=== PATIENT | male | born 1965 | race Caucasian/White ===

== ENCOUNTER 2018-02-28 04:44 | Emergency (ER) | payer OTHER ==
[2018-02-28 05:12] VITALS: BMI 30.4
[2018-02-28] MEDS ORDERED: SODIUM CHLORIDE 1,000 ML IV STA (05:17)
[2018-02-28] MEDS ORDERED: morphine CARPU-JECT 2 MG/1 ML DISP.SYRIN IVPUSH ONE (05:18)
--- NOTE | 2018-02-28 05:26 | PDOC ---
History of Present Illness - General Chief Complaint: Pain Stated Complaint: PAIN Time Seen by Provider: 02/28/18 05:16 - History of Present Illness Initial Comments: 02/28/18 05:20 Mr. Kingsley is a 52 yo male w/ no significant pmh who presents for evaluation of right upper quadrant pain radiating to his right shoulder since 11pm last night. He reports he has had similar pain in the past about a year ago for which he was evaluated without cause found. He reports he subsequently had an EGD that revealed small inflammation between his stomach and intestines. He cannot relate his pain to any activity or food and rates it as a 10/10 in intensity. The patient denies chest pain, shortness of breath, headache and dizziness. Denies fever, chills, nausea, vomit, diarrhea and constipation. Denies dysuria, frequency, urgency and hematuria. Allergies: NKDA Past History - Past Medical History Allergies/Adverse Reactions: Allergies Allergy/AdvReac Type Severity Reaction Status Date / Time No Known Allergies Allergy Verified 02/28/18 04:54 Home Medications: Ambulatory Orders Aspirin [ASA -] 325 mg PO DAILY 07/31/16 Anemia: No Asthma: Yes Cancer: No Cardiac Disorders: No CVA: No COPD: No CHF: No Dementia: No Diabetes: No GI Disorders: No Disorders: No HTN: No Hypercholesterolemia: No Liver Disease: No Seizures: No Thyroid Disease: No - Surgical History Abdominal Surgery: No Appendectomy: No Cardiac Surgery: No Cholecystectomy: No Lung Surgery: No Neurologic Surgery: No Orthopedic Surgery: No - Immunization History Immunization Up to Date: Yes - Suicide/Smoking/Psychosocial Hx Smoking Status: No Smoking History: Never smoked Have you smoked in the past 12 months: No Number of Cigarettes Smoked Daily: 0 If you are a former smoker, when did you quit?: 25 yrs Information on smoking cessation initiated: No Hx Alcohol Use: No Drug/Substance Use Hx: No Substance Use Type: None Hx Substance Use Treatment: No Review of Systems - Review of Systems Comments:: 02/28/18 05:26 GENERAL/CONSTITUTIONAL: No fever or chills. No weakness. HEAD, EYES, EARS, NOSE AND THROAT: No change in vision. No ear pain or discharge. No sore throat. CARDIOVASCULAR: No chest pain or shortness of breath RESPIRATORY: No cough, wheezing, or hemoptysis. GASTROINTESTINAL: +RUQ pain as described. No nausea, vomiting, diarrhea or constipation. GENITOURINARY: No dysuria, frequency, or change in urination. MUSCULOSKELETAL: No joint or muscle swelling or pain. No neck or back pain. SKIN: No rash NEUROLOGIC: No headache, vertigo, loss of consciousness, or change in strength/ sensation. ENDOCRINE: No increased thirst. No abnormal weight change HEMATOLOGIC/LYMPHATIC: No anemia, easy bleeding, or history of blood clots. ALLERGIC/IMMUNOLOGIC: No hives or skin allergy. *Physical Exam - Vital Signs Last Vital Signs Temp Pulse Resp BP Pulse Ox 98 F 62 20 142/77 100 02/28/18 04:48 02/28/18 04:48 02/28/18 04:48 02/28/18 04:48 02/28/18 04:48 - Physical Exam Comments: 02/28/18 05:26 GENERAL: Awake, alert, and fully oriented, in no acute distress HEAD: No signs of trauma, normocephalic, atraumatic EYES: PERRLA, EOMI, sclera anicteric, conjunctiva clear ENT: Auricles normal inspection, hearing grossly normal, nares patent, oropharynx clear without exudates. Moist mucosa NECK: Normal ROM, supple, no lymphadenopathy, JVD, or masses LUNGS: No distress, speaks full sentences, clear to auscultation bilaterally HEART: Regular rate and rhythm, normal S1 and S2, no murmurs, rubs or gallops, peripheral pulses normal and equal bilaterally. ABDOMEN: +RUQ TTTP. Soft, normoactive bowel sounds. No guarding, no rebound. No masses EXTREMITIES: Normal inspection, Normal range of motion, no edema. No clubbing or cyanosis. NEUROLOGICAL: Cranial nerves II through XII grossly intact. Normal speech, normal gait, no focal sensorimotor deficits SKIN: Warm, Dry, normal turgor, no rashes or lesions noted. ED Treatment Course - LABORATORY CBC & Chemistry Diagram: 02/28/18 05:26 02/28/18 05:26 Medical Decision Making - Medical Decision Making 02/28/18 05:41 Mr. Kingsley is a 52 yo male w/ no pmh who presents w/ symptoms concerning for acute cholecystitis. CT ordered as well as labs for evaluation. 02/28/18 06:50 Patient signed out to oncoming team for further evaluation. *DC/Admit/Observation/Transfer Diagnosis at time of Disposition: Abdominal pain Qualifiers: Abdominal location: right upper quadrant Qualified Code(s): R10.11 - Right upper quadrant pain - Discharge Dispostion Condition at time of disposition: Fair - Referrals Referrals: Jing Tipton MD [Primary Care Provider] - - Patient Instructions - Post Discharge Activity
[2018-02-28] MEDS ORDERED: MORPHINE SULFATE 2 MG/ML VIAL ONE (05:37)
[2018-02-28 05:40] LABS: BASO % 0.3 % (0-2.0); EOS % 0.6 % (0-4.5); HEMATOCRIT 46.3 % (35.4-49); HEMOGLOBIN 15.5 GM/dL (11.7-16.9); LYMPH % 8.2 % (8-40); MCH 28.2 pg (25.7-33.7); MCHC 33.4 g/dl (32.0-35.9); MEAN CELL VOLUME 84.4 fl (80-96); MEAN PLT VOLUME 7.5 fl (7.5-11.1); MONO % 7.1 % (3.8-10.2); NEUT % 83.8 % (42.8-82.8); PLATELET COUNT 302 K/MM3 (134-434); RBC 5.48 M/mm3 (4.00-5.60); RDW 13.9 % (11.9-15.9); WHITE BLOOD COUNT 14.7 K/mm3 (4.0-10.0)
[2018-02-28 06:02] LABS: ALBUMIN 4.1 g/dl (3.4-5.0); ANION GAP 7 (8-16); BILIRUBIN,TOTAL 0.5 mg/dL (0.2-1.0); BLOOD UREA NITROGEN 27 mg/dL (7-18); CALCIUM 8.7 mg/dL (8.5-10.1); CHLORIDE 106 mmol/L (98-107); CO2 27 mmol/L (21-32); CREATININE 1.1 mg/dL (0.7-1.3); GLUCOSE,RANDOM 100 mg/dL (74-106); INR 1.06 (0.82-1.09); LIPASE 110 U/L (73-393); POTASSIUM 4.5 mmol/L (3.5-5.1); SGOT/AST 17 U/L (15-37); SGPT/ALT 24 U/L (12-78); SODIUM 140 mmol/L (136-145); TOT PROT 7.6 g/dl (6.4-8.2)
[2018-02-28 06:04] LABS: ACTIVATED PTT 42.6 SECONDS (25.2-36.5)
[2018-02-28 06:05] LABS: ALK PHOS 74 U/L (45-117)
--- NOTE | 2018-02-28 06:05 | PDOC ---
Attending Attestation - HPI HPI: 02/28/18 06:07 The patient is a 52 year old male with no significant PMH who presents to the emergency department with right upper quadrant pain that began at approximately 11PM last night. The patient describes the right upper quadrant pain as 10/10 in intensity and sharp. Patient states he had a EGD in the past for a similar pain that revealed small inflammation between the stomach and intestines. The patient denies chest pain, shortness of breath, headache and dizziness. Denies fever, chills, nausea, vomit, diarrhea and constipation. Denies dysuria, frequency, urgency and hematuria. Allergies: NKA Past surgical history: None reported Social history: No reported alcohol, drug, or cigarette use. PCP: Dr. Tipton - Physicial Exam PE: 02/28/18 06:19 GENERAL: Awake, alert, and fully oriented, in no acute distress HEAD: No signs of trauma EYES: PERRLA, EOMI, sclera anicteric, conjunctiva clear ENT: Auricles normal inspection, hearing grossly normal, nares patent, oropharynx clear without exudates. Moist mucosa NECK: Normal ROM, supple, no lymphadenopathy, JVD, or masses LUNGS: Breath sounds equal, clear to auscultation bilaterally. No wheezes, and no crackles HEART: Regular rate and rhythm, normal S1 and S2, no murmurs, rubs or gallops ABDOMEN: (+) Right upper quadrant tenderness. Soft, normoactive bowel sounds. No guarding, no rebound. No masses EXTREMITIES: Normal range of motion, no edema. No clubbing or cyanosis. No cords, erythema, or tenderness NEUROLOGICAL: Cranial nerves II through XII grossly intact. Normal speech, normal gait SKIN: Warm, Dry, normal turgor, no rashes or lesions noted. <Anastacia Radford - Last Filed: 02/28/18 06:19> - Resident Resident Name: Deon Kauffman - ED Attending Attestation I have performed the following: I have examined & evaluated the patient, The case was reviewed & discussed with the resident, I agree w/resident's findings & plan, Exceptions are as noted - Medical Decision Making 02/28/18 19:42 Pt treated and released <Damon Barnett - Last Filed: 02/28/18 19:43>
[2018-02-28] MEDS ORDERED: morphine CARPU-JECT 4 MG/1 ML DISP.SYRIN IVPUSH ONE (06:24)
[2018-02-28] MEDS ORDERED: morphine SULFATE 4 MG/ML VIAL ONE (06:29)
--- NOTE | 2018-02-28 07:02 | PDOC ---
*Physical Exam - Vital Signs Last Vital Signs Temp Pulse Resp BP Pulse Ox 98 F 62 20 142/77 100 02/28/18 04:48 02/28/18 04:48 02/28/18 04:48 02/28/18 04:48 02/28/18 04:48 ED Treatment Course - LABORATORY CBC & Chemistry Diagram: 02/28/18 05:26 02/28/18 05:26 - ADDITIONAL ORDERS Additional order review: Laboratory Results 02/28/18 02/28/18 02/28/18 05:26 05:26 05:26 PT with INR 12.00 INR 1.06 PTT (Actin FS) 42.6 H Sodium 140 Potassium 4.5 Chloride 106 Carbon Dioxide 27 Anion Gap 7 L BUN 27 H Creatinine 1.1 Creat Clearance w eGFR > 60 Random Glucose 100 Calcium 8.7 Total Bilirubin 0.5 AST 17 ALT 24 D Alkaline Phosphatase 74 Creatine Kinase 150 Creatine Kinase Index 0.6 CK-MB (CK-2) 0.92 Troponin I < 0.02 Total Protein 7.6 Albumin 4.1 Lipase 110 Blood Type O NEGATIVE Antibody Screen Negative 02/28/18 05:26 RBC 5.48 MCV 84.4 MCHC 33.4 RDW 13.9 MPV 7.5 Neutrophils % 83.8 H Lymphocytes % 8.2 D Monocytes % 7.1 Eosinophils % 0.6 D Basophils % 0.3 - Medications Given in the ED: ED Medications Discontinued Medications Generic Name Dose Route Start Last Admin Trade Name Freq PRN Reason Stop Dose Admin Sodium Chloride 1,000 mls @ 1,000 mls/hr 02/28/18 05:17 02/28/18 05:43 Normal Saline - IV 02/28/18 06:16 1,000 mls/hr ASDIR STA Administration Morphine Sulfate 2 mg 02/28/18 05:18 02/28/18 05:46 Morphine Injection - IVPUSH 02/28/18 05:19 2 mg ONCE ONE Administration Morphine Sulfate 4 mg 02/28/18 06:24 02/28/18 06:31 Morphine Injection - IVPUSH 02/28/18 06:25 4 mg ONCE ONE Administration Medical Decision Making - Medical Decision Making 02/28/18 07:[address] scan 02/28/18 08:15 -CT read from imaging personal injury specialist negative for any acute abdominal pathology, negative for cholecystitis -patient still experiencing abdominal pain -will order RUQ ultrasound 02/28/18 11:11 US shows fatty liver vs hepatocellular disease *DC/Admit/Observation/Transfer Diagnosis at time of Disposition: Abdominal pain Qualifiers: Abdominal location: right upper quadrant Qualified Code(s): R10.11 - Right upper quadrant pain - Discharge Dispostion Disposition: HOME Condition at time of disposition: Stable Decision to Admit order: No - Referrals Referrals: Jing Tipton MD [Primary Care Provider] - 1 week Rober Chen MD [Staff Physician] - - Patient Instructions Additional Instructions: You were seen in the hospital for abdominal pain. Your CAT scan was negative for any acute disease You Ultrasound shows you may have some mild fatty liver disease, please make sure to follow with your primary care and nailhead setter. Please follow with your primary care physician within 1 week of discharge Please make an appointment with the Cellars Supervisor, Dr. Chen, within 1 week of discharge If you experience fevers, chills, further severe abdominal pain, nausea, vomiting, diarrhea - Post Discharge Activity
[2018-02-28 07:41] LABS: URINE APPEARANCE CLEAR; URINE BILIRUBIN NEGATIVE (<2.0 mg/dL); URINE COLOR LTYELLOW; URINE GLUCOSE (UA) NEGATIVE (NEGATIVE); URINE KETONE NEGATIVE (NEGATIVE); URINE LEUK ESTERASE NEGATIVE (NEGATIVE); URINE NITRITE NEGATIVE (NEGATIVE); URINE PROTEIN NEGATIVE (NEGATIVE); URINE UROBILINOGEN NEGATIVE mg/dL (0.2-1.0)
[2018-02-28 07:58] LABS: URINE MUCUS RARE
[2018-02-28 10:45] VITALS: TEMP 98.2
[2018-02-28 11:52] VITALS: BP 137/77; PULSE 59
--- NOTE | 2018-02-28 13:24 | EKG ---
Test Reason : Blood Pressure : / mmHG Vent. Rate : 064 BPM Atrial Rate : 064 BPM P-R Int : 158 ms QRS Dur : 092 ms QT Int : 410 ms P-R-T Axes : 056 052 016 degrees QTc Int : 422 ms NORMAL SINUS RHYTHM MINIMAL VOLTAGE CRITERIA FOR LVH, MAY BE NORMAL VARIANT BORDERLINE ECG WHEN COMPARED WITH ECG OF 03-AUG-2016 04:07, NO SIGNIFICANT CHANGE WAS FOUND Confirmed by Dominik Duran ([id number]) on 02/28/2018 1:24:11 PM Referred By: Confirmed By:Dominik Duran
== END 2018-02-28 11:49 | disposition home or self-care (01) ==
LOC: JER 04:44
PROC: 3E0337Z Introduction of Electrolytic and Water Balance Substance into Peripheral Vein, Percutaneous Approach (ICD-10-PCS; principal; 2018-02-28)
PROC: 3E033NZ Introduction of Analgesics, Hypnotics, Sedatives into Peripheral Vein, Percutaneous Approach (ICD-10-PCS; 2018-02-28)
DX: R10.11 Right upper quadrant pain (principal)
CPT/HCPCS: 36415; 74177-TC; 76705-TC; 80053; 81003; 81015; 82550; 82553; 83690; 84484; 85025; 85610; 85730; 86850; 86900; 86901; 87086; 93005; 93010; 99283-25; J7030

== ENCOUNTER 2018-03-03 17:09 | Observation (INO) | payer OTHER ==
[2018-03-03 17:22] VITALS: BMI 30.4
--- NOTE | 2018-03-03 17:37 | PDOC ---
History of Present Illness - General Chief Complaint: Palpitations Stated Complaint: chest pain Time Seen by Provider: 03/03/18 17:37 - History of Present Illness Initial Comments: 52 yo male with no significant PMH feeling palpitations beginning 2-3 weeks prior and is acutely worse today along with abdominal pain. He has been here multiple times in the last few weeks for abdominal pain that has been worked up only significant for fatty liver. Admits to decreased appetite, nausea, diarrhea , and SOB. Denies vomiting, fevers, headaches, or others symptoms. He received a Carotid Doppler within the last few weeks as well that was normal. PCP is [facility]. 03/03/18 17:43 Past History - Past Medical History Allergies/Adverse Reactions: Allergies Allergy/AdvReac Type Severity Reaction Status Date / Time No Known Allergies Allergy Verified 02/28/18 04:54 Home Medications: Ambulatory Orders Amlodipine Besylate [Norvasc -] 5 mg PO DAILY #30 tablet 03/06/18 Anemia: No Asthma: Yes Cancer: No Cardiac Disorders: No CVA: No COPD: No CHF: No Dementia: No Diabetes: No GI Disorders: No Disorders: No HTN: No Hypercholesterolemia: No Liver Disease: No Seizures: No Thyroid Disease: No - Surgical History Abdominal Surgery: No Appendectomy: No Cardiac Surgery: No Cholecystectomy: No Lung Surgery: No Neurologic Surgery: No Orthopedic Surgery: No - Immunization History Immunization Up to Date: Yes - Suicide/Smoking/Psychosocial Hx Smoking Status: No Smoking History: Former smoker Have you smoked in the past 12 months: No Number of Cigarettes Smoked Daily: 0 If you are a former smoker, when did you quit?: 25 yrs Information on smoking cessation initiated: No Hx Alcohol Use: No Drug/Substance Use Hx: No Substance Use Type: None Hx Substance Use Treatment: No Review of Systems - Review of Systems Constitutional: No: Chills, Diaphoresis, Fever, Loss of Appetite HEENTM: No: Eye Pain, Blurred Vision Respiratory: No: Cough, Orthopnea, Shortness of Breath Cardiac (ROS): Yes: Chest Pain, Palpitations. No: Edema, Irregular Heart Rate ABD/GI: No: Diarrhea, Nausea, Vomiting : No: Dysuria, Discharge, Frequency Musculoskeletal: No: Back Pain, Gout, Joint Pain Integumentary: No: Bruising, Lesions, Lumps Neurological: No: Headache, Numbness, Paresthesia Psychiatric: Yes: Anxiety. No: Depression Endocrine: No: Excessive Sweating, Flushing Hematologic/Lymphatic: No: Anemia, Blood Clots *Physical Exam - Vital Signs Last Vital Signs Temp Pulse Resp BP Pulse Ox 99.5 F 83 20 144/82 99 03/03/18 17:19 03/03/18 17:19 03/03/18 17:19 03/03/18 17:19 03/03/18 17:19 - Physical Exam General Appearance: Yes: Nourished, Appropriately Dressed. No: Apparent Distress HEENT: positive: EOMI, ANTONY, Other (Slight scleeral injection bilaterally). negative: Normal ENT Inspection Neck: positive: Trachea midline, Normal Thyroid, Supple. negative: Tender, Rigid Respiratory/Chest: positive: Lungs Clear, Normal Breath Sounds. negative: Chest Tender, Respiratory Distress, Accessory Muscle Use Cardiovascular: positive: Regular Rhythm, Regular Rate. negative: Tachycardia Gastrointestinal/Abdominal: positive: Normal Bowel Sounds, Flat, Soft. negative : Tender ED Treatment Course - LABORATORY CBC & Chemistry Diagram: 03/06/18 05:45 03/06/18 05:45 Medical Decision Making - Medical Decision Making 52 year old male with palliations. Unclear etiology but substance abuse and elevated thyroid function could be the cause vs. intrinsic cardiac pathology ( tachyarrythmia). EKG demonstrating NSR 58 BPM, IA 152, QTc 428, QRS 96, and normal axis with borderline LVH criteria. Jacyn signed out to Dr. Caba in stable condition pending labs. 03/03/18 17:43 *DC/Admit/Observation/Transfer Diagnosis at time of Disposition: Palpitations, Near syncope Chest pain Qualifiers: Chest pain type: precordial pain Qualified Code(s): R07.2 - Precordial pain - Discharge Dispostion Disposition: HOME Condition at time of disposition: Improved - Prescriptions - Referrals - Patient Instructions - Post Discharge Activity
--- NOTE | 2018-03-03 17:55 | PDOC ---
Attending Attestation - HPI HPI: 03/03/18 19:03 The patient is a 52 year old male with past medical history of asthma presents to the emergency department with chest palpitations. Patient presents with a progressively worsening chest pain accompanied with radiating generalized body pain for the past couple of weeks. The patient states earlier today he experienced an onset of elevated blood pressure thats been more frequent than previous episodes. Patient states he checked his heart rate on an tommy on his phone, which showed 135 bpm. Denies fever, chills, cough or a headache. Denies shortness of breath or orthopnea. Denies abdominal pain or back pain. Denies dysuria, hematuria, frequency or urgency to urinate. Allergies: NKDA Social history: Former smoker. Denies alcohol or recreational drug use. Surgical history: None reported. PCP: Dr. Tipton. - Physicial Exam PE: 03/03/18 19:03 GENERAL: The patient is in no acute distress. HEAD: Normal with no signs of trauma. EYES: PERRLA, EOMI, sclera anicteric, conjunctiva clear. ENT: Ears normal, nares patent, oropharynx clear without exudates. Moist mucous membranes. NECK: Normal range of motion, supple without lymphadenopathy, JVD, or masses. LUNGS: Breath sounds equal, clear to auscultation bilaterally. No wheezes, and no crackles. HEART:Regular rate and rhythm, normal S1 and S2 without murmur, rub or gallop. ABDOMEN: Soft, nontender, normoactive bowel sounds. No guarding, no rebound. No masses palpable. EXTREMITIES: Normal range of motion, no edema. No clubbing or cyanosis. No erythema, or tenderness. NEUROLOGICAL: Cranial nerves II through XII grossly intact. Normal speech. No focal neurological deficits. MUSCULOSKELETAL: Back non-tender to palpation, no CVA tenderness SKIN: Warm, Dry, normal turgor, no rashes or lesions noted. - Medical Decision Making 03/03/18 19:04 Documentation prepared by Dawn Vo, acting as auditor medical claims for Shoshana Zaman MD. <Dawn Vo - Last Filed: 03/03/18 19:03> - Resident Resident Name: Miguelina Mario - ED Attending Attestation I have performed the following: I have examined & evaluated the patient, The case was reviewed & discussed with the resident, I agree w/resident's findings & plan, Exceptions are as noted - Medical Decision Making Pt presents with an episode of tachycardia which he has had in the past Pending labs Pending re assessment Signed out to overnight team <Shoshana Zaman - Last Filed: 03/06/18 08:37>
[2018-03-03] MEDS ORDERED: FAMOTIDINE 20 MG/50 ML IVPB 20 MG/50 ML MG IVPB ONE ×2 (18:22→19:57)
[2018-03-03] MEDS ORDERED: MAG HYDROX/AL HYDROX/SIMETH 30 ML UNIT-DOSE CUP PO ONE (18:22)
--- NOTE | 2018-03-03 19:18 | PDOC ---
*Physical Exam - Vital Signs Last Vital Signs Temp Pulse Resp BP Pulse Ox 99.5 F 83 20 144/82 99 03/03/18 17:19 03/03/18 17:19 03/03/18 17:19 03/03/18 17:19 03/03/18 17:19 03/03/18 19:16 Patient's care endorsed to me by Drs. Mario and Austyn at the end of their shifts. Per Dr. Mario's note, patient is a 52 yo male with no significant PMH feeling palpitations beginning 2-3 weeks prior and is acutely worse today along with abdominal pain. He has been here multiple times in the last few weeks for abdominal pain that has been worked up only significant for fatty liver. Admits to decreased appetite, nausea, diarrhea, and SOB. Denies vomiting, fevers, headaches, or others symptoms. He received a Carotid Doppler within the last few weeks as well that was normal. PCP is [facility]. Awaiting second troponin, HEART score is 3 based on first troponin, needs outpatient cardiology followup. Heart Score/ECG Review - History History: Moderately suspicious - Electrocardiogram EKG: Normal - Age Age: 45-65 - Risk Factors Risk Factors Heart Score: Yes Hx Obesity Based on the list above the patient has:: 1-2 risk factors - Troponin Troponin: </= normal limit - Score Heart Score - Total: 3 #1 NSR, rate 77, normal axis and intervals, no ischemic changes ED Treatment Course - LABORATORY CBC & Chemistry Diagram: 03/03/18 19:49 03/03/18 19:49 Medical Decision Making - Medical Decision Making 03/03/18 20:59 Patient has WBC elevation with left shift. Rectal temperature ordered. EKG reviewed and NADP, no e/o effusion or pericarditis. First troponin negative. Laboratory Tests 03/03/18 03/03/18 03/03/18 19:49 19:49 19:49 WBC 12.6 H RBC 5.30 Hgb 14.8 Hct 44.4 MCV 83.7 MCH 27.9 MCHC 33.3 RDW 13.6 Plt Count 317 MPV 7.7 Absolute Neuts (auto) 10.5 Neutrophils % 83.4 H Lymphocytes % 10.4 D Monocytes % 5.7 Eosinophils % 0.2 Basophils % 0.3 Nucleated RBC % 0 PT with INR 13.90 H INR 1.23 H Sodium 142 Potassium 4.2 Chloride 108 H Carbon Dioxide 25 Anion Gap 9 BUN 23 H Creatinine 1.0 Creat Clearance w eGFR > 60 Random Glucose 90 Calcium 8.9 Total Bilirubin 0.4 AST 13 L D ALT 22 Alkaline Phosphatase 66 Total Protein 7.4 Albumin 3.9 Lipase TSH 3.23 03/03/18 19:49 WBC RBC Hgb Hct MCV MCH MCHC RDW Plt Count MPV Absolute Neuts (auto) Neutrophils % Lymphocytes % Monocytes % Eosinophils % Basophils % Nucleated RBC % PT with INR INR Sodium Potassium Chloride Carbon Dioxide Anion Gap BUN Creatinine Creat Clearance w eGFR Random Glucose Calcium Total Bilirubin AST ALT Alkaline Phosphatase Total Protein Albumin Lipase 85 TSH Second troponin order placed for 23:50. 03/03/18 22:23 Patient is going for chest CTA. 03/03/18 23:45 Repeat cardiac enzymes ordered. 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 Should be managed in hospital with cardiology consult. The Pt is unsafe for discharge at this time. They require further hospital observation, workup, and treatment. Microblog sent to [facility] for admission. Spoke with [facility], in agreement Pt to be admitted to to: Telemetry Decision to Admit order placed to covering attending Consult order placed to cardiology on-call provider. *DC/Admit/Observation/Transfer Diagnosis at time of Disposition: Palpitations, Near syncope Chest pain Qualifiers: Chest pain type: unspecified Qualified Code(s): R07.9 - Chest pain, unspecified - Discharge Dispostion Condition at time of disposition: Stable Decision to Admit order: Yes - Referrals Referrals: Jing Tipton MD [Primary Care Provider] - - Patient Instructions - Post Discharge Activity
[2018-03-03] MEDS ORDERED: MAG HYDROX/AL HYDROX/SIMETH 30 ML UNIT-DOSE CUP ONE (19:57)
[2018-03-03 20:02] LABS: BASO % 0.3 % (0-2.0); EOS % 0.2 % (0-4.5); WHITE BLOOD COUNT 12.6 K/mm3 (4.0-10.0)
[2018-03-03 20:05] LABS: HEMATOCRIT 44.4 % (35.4-49); HEMOGLOBIN 14.8 GM/dL (11.7-16.9); LYMPH % 10.4 % (8-40); MCH 27.9 pg (25.7-33.7); MCHC 33.3 g/dl (32.0-35.9); MEAN CELL VOLUME 83.7 fl (80-96); MEAN PLT VOLUME 7.7 fl (7.5-11.1); MONO % 5.7 % (3.8-10.2); NEUT % 83.4 % (42.8-82.8); PLATELET COUNT 317 K/MM3 (134-434); RDW 13.6 % (11.9-15.9)
[2018-03-03 20:15] LABS: INR 1.23 (0.82-1.09); PROTHROMBIN TIME (PATIENT) 13.9 SEC (9.7-13.0)
[2018-03-03 20:24] LABS: ALBUMIN 3.9 g/dl (3.4-5.0); ANION GAP 9 (8-16); BILIRUBIN,TOTAL 0.4 mg/dL (0.2-1.0); BLOOD UREA NITROGEN 23 mg/dL (7-18); CALCIUM 8.9 mg/dL (8.5-10.1); CHLORIDE 108 mmol/L (98-107); CO2 25 mmol/L (21-32); GLUCOSE,RANDOM 90 mg/dL (74-106); POTASSIUM 4.2 mmol/L (3.5-5.1); SGOT/AST 13 U/L (15-37); SGPT/ALT 22 U/L (12-78); SODIUM 142 mmol/L (136-145); TOT PROT 7.4 g/dl (6.4-8.2)
[2018-03-03 20:32] LABS: ALK PHOS 66 U/L (45-117)
--- NOTE | 2018-03-03 22:00 | PDOC ---
*Physical Exam - Vital Signs Last Vital Signs Temp Pulse Resp BP Pulse Ox 99.5 F 83 20 144/82 99 03/03/18 17:19 03/03/18 17:19 03/03/18 17:19 03/03/18 17:19 03/03/18 17:19 ED Treatment Course - LABORATORY CBC & Chemistry Diagram: 03/03/18 19:49 03/03/18 19:49 - ADDITIONAL ORDERS Additional order review: Laboratory Results 03/03/18 03/03/18 03/03/18 19:49 19:49 19:49 PT with INR 13.90 H INR 1.23 H Sodium 142 Potassium 4.2 Chloride 108 H Carbon Dioxide 25 Anion Gap 9 BUN 23 H Creatinine 1.0 Creat Clearance w eGFR > 60 Random Glucose 90 Calcium 8.9 Total Bilirubin 0.4 AST 13 L D ALT 22 Alkaline Phosphatase 66 Total Protein 7.4 Albumin 3.9 Lipase 85 TSH 3.23 03/03/18 19:49 RBC 5.30 MCV 83.7 MCHC 33.3 RDW 13.6 MPV 7.7 Neutrophils % 83.4 H Lymphocytes % 10.4 D Monocytes % 5.7 Eosinophils % 0.2 Basophils % 0.3 - RADIOLOGY Radiology Studies Ordered: Category Date Time Status CHEST CT WITH CONTRAST [CT] Stat CT Scan 03/03/18 21:57 Ordered - Medications Given in the ED: ED Medications Discontinued Medications Generic Name Dose Route Start Last Admin Trade Name Dilipq PRN Reason Stop Dose Admin Al Hydroxide/Mg Hydroxide 30 ml 03/03/18 18:22 03/03/18 20:03 Mylanta Oral Suspension - PO 03/03/18 18:23 30 ml ONCE ONE Administration Famotidine/Sodium Chloride 20 mg in 50 mls @ 100 mls/hr 03/03/18 18:22 20:03 Pepcid 20 Mg Premixed Ivpb - IVPB 03/03/18 18:51 100 mls/hr ONCE ONE Administration Medical Decision Making - Medical Decision Making 03/03/18 21:58 received pt on signout. 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 Pt needs admission to tele obs. Pt has a hx of snorting drugs in his younger days and may have vegetations on his heart. He was tachy to 130 and had temp of 99.5 oral in the ER on arrival; pt needs echocardiogram. He will be admitted to tele obs. 03/03/18 23:15 *DC/Admit/Observation/Transfer Diagnosis at time of Disposition: Chest pain, Palpitations - Discharge Dispostion Condition at time of disposition: Stable - Referrals Referrals: Jing Tipton MD [Primary Care Provider] - - Patient Instructions Printed Discharge Instructions: DI for Chest Pain, DI for Epigastric Pain Additional Instructions: You were seen in the ER for chest pain. We did lab work on your blood and urine , an electrocardiogram, and a chest x-ray, and we did not find any concerning abnormalities. Your symptoms improved with the medications we gave you in the ER. After our assessment, we do not believe you are having a medical emergency at this time, and we believe you are safe to go home. Take over the counter pain medications for your pain, as instructed on the medication label. Please follow up with your regular PCP doctor in 1-3 days. Call their clinic as soon as possible, tell them you were seen in the ER, and tell them you need an appointment. If you have any new or worsening symptoms, especially worsening chest pain, jaw pain, shoulder/arm pain, shortness of breath, sweats, nausea, loss of consciousness, palpitations, or other symptoms, please come back to the ER at any time (24 hours a day). If you are having severe or life threatening symptoms, or symptoms that make it unsafe to drive or have someone drive you, please call 911. - Post Discharge Activity
--- NOTE | 2018-03-04 01:01 | HP ---
Admitting History and Physical - Primary Care Physician PCP: Dr. Jing Tipton - Admission Chief Complaint: Palpitations History of Present Illness: 52 yo M no significant medical history presented to the ED with palpitation and chest pressure x 2 days. Patient endorses fast heart rate started yesterday night and continued into today. 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 The symptom occurs at rest and during physical activities. It's associated with sob, dizziness, R hand numbness and tingling. The chest pressure is generalized and diffuse over the center of chest. Patient had multiple ED visits and ACS workups have been negative. He was instructed to undergo stress test at [facility] but never followed up. Denies fever, chills, weakness, urinary or bowel sx, recent travel, trauma. History Source: Patient Limitations to Obtaining History: No Limitations - Smoking History Smoking history: Former smoker Have you smoked in the past 12 months: No Aproximately how many cigarettes per day: 0 If you are a former smoker, when did you quit?: 25 yrs - Alcohol/Substance Use Hx Alcohol Use: No Home Medications - Allergies Allergies/Adverse Reactions: Allergies Allergy/AdvReac Type Severity Reaction Status Date / Time No Known Allergies Allergy Verified 02/28/18 04:54 - Home Medications Home Medications: Ambulatory Orders NK [No Known Home Medication] 03/04/18 Review of Systems - Review of Systems Constitutional: reports: No Symptoms Eyes: reports: No Symptoms HENT: reports: No Symptoms Neck: reports: No Symptoms Cardiovascular: reports: Palpitations, Shortness of Breath. denies: Chest Pain Respiratory: reports: SOB. denies: Cough, Exercise Intolerance, Hemoptysis, Orthopnea Gastrointestinal: reports: No Symptoms Genitourinary: reports: No Symptoms Neurological: reports: No Symptoms Physical Examination Vital Signs: Vital Signs Temperature 99.0 F 03/03/18 22:15 Pulse Rate 76 03/03/18 22:08 Respiratory Rate 18 03/03/18 22:08 Blood Pressure 155/76 03/03/18 22:08 O2 Sat by Pulse Oximetry (%) 98 03/03/18 22:08 Constitutional: Yes: Well Nourished, No Distress, Calm Eyes: Yes: Conjunctiva Clear, EOM Intact, PERRL HENT: Yes: Atraumatic, Normocephalic Neck: Yes: Supple, Trachea Midline Cardiovascular: Yes: Regular Rate and Rhythm, S1, S2. No: Bruit, JVD, Murmur, Rub Respiratory: Yes: Regular, CTA Bilaterally Gastrointestinal: Yes: Normal Bowel Sounds, Soft, Abdomen, Obese. No: Splenomegaly, Tenderness Musculoskeletal: Yes: WNL Extremities: Yes: WNL Edema: No Peripheral Pulses WNL: Yes Neurological: Yes: Alert, Oriented, Cran Nerves II-XII Intact ...Motor Strength: WNL Labs: CBC, BMP 03/03/18 19:49 03/03/18 19:49 Imaging - Results Cat Scan: Report Reviewed, Image Reviewed EKG: Report Reviewed, Image Reviewed Assessment/Plan 52 yo M admitted to obs for palpitation and chest pressure r/o ACS. Palpitations with chest pressure r/o arrhythmia and ACS - Likely from anxiety and GI issue * + findings of ulcers on prior endoscopy - Negative trop x 2, will send 3rd trop - Normal EKG x 1, repeat EKG in AM - Negative stress test in 2012. Never f/u with Dr. Bermudez or Phillip for further stress test - Cardiac monitoring - Protonix 40mg PO, nitroglycerin PRN - Cardiology consult Leukocytosis - Persistent since 2013 - Unknown cause but no sign of infection - Observe off abx and outpatient f/u with hematology HTN - BP poorly controlled on admission - Start low dose norvasc 5mg daily - outpatient f/u for BP checks DVT ppx: lovenox 40mg Dispo: observation. awaiting for cardiology clearance. Chris Joseph [id number] [phone] Visit type - Emergency Visit Emergency Visit: Yes ED Registration Date: 03/03/18 Care time: The patient presented to the Emergency Department on the above date and was hospitalized for further evaluation of their emergent condition. - New Patient This patient is new to me today: Yes Date on this admission: 03/04/18 - Critical Care Critical Care patient: No Hospitalist Screening - Colonoscopy Questionnaire Colonoscopy Questionnaire: Colonoscopy Questionnaire - Patient: 50 - 75 years old and never had a screening colonoscopy: Unknown History of colon or rectal polyps, or CA: Unknown History of IBD, Crohn's disease or UC: Unknown History of abdominal radiation therapy as a child: Unknown - Relative: 1 with colon or rectal CA, or polyps at age 60 or younger: Unknown Colon or rectal CA diagnosed at age 45 or younger: Unknown Multiple relatives with colon or rectal CA: Unknown - Outcome: Screening Result: Negative Screen
[2018-03-04] MEDS ORDERED: NITROGLYCERIN SUBLINGUAL 1/150 0.4 MG TAB SL PRN (01:19)
[2018-03-04] MEDS ORDERED: PANTOPRAZOLE 40 MG TABLET (FP) PO ONE (01:19)
[2018-03-04] MEDS ORDERED: amLODIPine BESYLATE 5 MG TABLET (FP) PO ONE (01:30)
--- NOTE | 2018-03-04 06:09 | PN ---
Teaching Attending Note Name of Resident: Chris Ruiz ATTENDING PHYSICIAN STATEMENT I saw and evaluated the patient. I reviewed the resident's note and discussed the case with the resident. I agree with the resident's findings and plan as documented. SUBJECTIVE: OBJECTIVE: ASSESSMENT AND PLAN: this is a 52 y/o male admitted to observation after the patient had an episode of lightheadness and near syncope. according to the patient before the episode happened the patient started feeling that his heart is racing and that he checked his heart rate on his phone and was in the upper 130s and that is when he deiced to come to the ER for further evaluation. 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 he moves around during his shifts. denied any chest pain but stated that he is having chest tightness when he felt his hear was racing. he denied any stimulants when he is driving patient denied any drug use, no coffee, tea, energy drinks, caffeinated beverages. he stated he doesnt drink more that 1 cup of coffee a day and for the past week he hasnt drank any. this is his second episode for him plan admit to obs-tele cardiology evaluation
[2018-03-04 06:13] LABS: BASO % 0.5 % (0-2.0); EOS % 1.2 % (0-4.5); HEMATOCRIT 44.7 % (35.4-49); HEMOGLOBIN 15.1 GM/dL (11.7-16.9); LYMPH % 14.6 % (8-40); MCH 28.6 pg (25.7-33.7); MCHC 33.9 g/dl (32.0-35.9); MEAN CELL VOLUME 84.4 fl (80-96); MEAN PLT VOLUME 7.6 fl (7.5-11.1); MONO % 8.4 % (3.8-10.2); NEUT % 75.3 % (42.8-82.8); PLATELET COUNT 296 K/MM3 (134-434); RBC 5.29 M/mm3 (4.00-5.60); RDW 13.7 % (11.9-15.9)
[2018-03-04 06:36] LABS: ANION GAP 5 (8-16); BLOOD UREA NITROGEN 22 mg/dL (7-18); CALCIUM 9.2 mg/dL (8.5-10.1); CHLORIDE 106 mmol/L (98-107); CO2 30 mmol/L (21-32); CREATININE 1.2 mg/dL (0.7-1.3); GLUCOSE,RANDOM 80 mg/dL (74-106); MAGNESIUM 2.5 mg/dL (1.8-2.4); POTASSIUM 4.7 mmol/L (3.5-5.1); SODIUM 141 mmol/L (136-145)
[2018-03-04] MEDS ORDERED: PT OWN MED DRAWER 7, Y5N ONE (09:41)
[2018-03-04] MEDS: ENOXAPARIN NA (PORCINE) 40 MG/0.4 ML DISP.SYRIN SQ SCH (09:48)
[2018-03-04] MEDS: amLODIPine BESYLATE 5 MG TABLET (FP) PO SCH (09:48)
--- NOTE | 2018-03-04 12:03 | CON.CARD ---
Consult Consult Specialty:: Cardiology Referred by:: Hospitalist Medicine Reason for Consultation:: Chest pain, palpitations, dyspnea - History of Present Illness Chief Complaint: Chest pain, palpitations, dyspnea History of Present Illness: 52 y/o male presented with episode of lightheadness and near syncope without true syncope. Prior to episode, patient experienced non-exertional palpitations with chest tightness, dyspnea and that he checked his heart rate on his phone and was in the upper 130s and that is when he deiced to come to the ER for further evaluation. No events on telemetry thus far. - History Source History Provided By: Patient Limitations to Obtaining History: No Limitations - Alcohol/Substance Use Hx Alcohol Use: No - Smoking History Smoking history: Former smoker Have you smoked in the past 12 months: No Aproximately how many cigarettes per day: 0 If you are a former smoker, when did you quit?: 25 yrs Home Medications - Allergies Allergies/Adverse Reactions: Allergies Allergy/AdvReac Type Severity Reaction Status Date / Time No Known Allergies Allergy Verified 02/28/18 04:54 - Home Medications Home Medications: Ambulatory Orders NK [No Known Home Medication] 03/04/18 Review of Systems - Review of Systems Cardiovascular: reports: Palpitations, Shortness of Breath Neurological: reports: Dizziness Vital Signs: Vital Signs Temperature 99.0 F 03/03/18 22:15 Pulse Rate 55 L 03/04/18 04:32 Respiratory Rate 18 03/04/18 04:32 Blood Pressure 126/65 03/04/18 04:32 O2 Sat by Pulse Oximetry (%) 97 03/04/18 10:26 Constitutional: Yes: No Distress, Calm Neck: Yes: Supple Respiratory: Yes: Regular, CTA Bilaterally Gastrointestinal: Yes: Normal Bowel Sounds, Soft Cardiovascular: Yes: Regular Rate and Rhythm JVD: No Carotid Bruit: No Heart Sounds: Yes: S1, S2 Edema: No - Other Data Labs, Other Data: CBC, BMP 03/04/18 05:49 03/04/18 05:49 INR, PTT INR 1.23 (0.82-1.09) H 03/03/18 19:49 Troponin, BNP 03/03/18 03/03/18 03/04/18 19:49 23:51 05:49 Troponin I < 0.02 < 0.02 < 0.02 Troponin, BNP 03/03/18 03/03/1803/04/18 19:49 23:51 05:49 Troponin I < 0.02 < 0.02 < 0.02 Imaging - Results EKG: Report Reviewed (SB @ 58 min criteria LVH) Problem List - Problems (1) Hypertension Code(s): I10 - ESSENTIAL (PRIMARY) HYPERTENSION Qualifiers: Hypertension type: essential hypertension Qualified Code(s): I10 - Essential (primary) hypertension (2) Chest pain Code(s): R07.9 - CHEST PAIN, UNSPECIFIED Qualifiers: Chest pain type: precordial pain Qualified Code(s): R07.2 - Precordial pain (3) Near syncope Code(s): R55 - SYNCOPE AND COLLAPSE (4) Palpitations Code(s): R00.2 - PALPITATIONS Assessment/Plan 1. Palpitations, chest tightness, dyspnea, near syncope r/o sustained tachyarrhythmia vs mitral valve prolapse syndrome 2. HTN P:1. Ruled out for OH, normal TSH noted, f/u chest CT and CXR reports 2. 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 Echocardiogram to assess ventricular and valve fxn 4. Started Norvasc 5 qd, watch for associated reflex tachycardia 5. Thank you for consultative opportunity
[2018-03-04] MEDS ORDERED: SODIUM CHLORIDE 1,000 ML IV STA (15:00)
--- NOTE | 2018-03-04 15:00 | HOSP ---
Subjective - Review of Symptoms Subjective: currently asymptomatic. has had 3 episodes of palpitations but yesterday was the most severe as it was assoc iwth near syncope. states he checked his HR on his phone and it was 130's. last episode was 2 weeks ago. denies CP, SOB, fever , chills, N/V/C/D, blurred vision had stress test several years ago and reports as negative Mother had cardiac disease in her 40's (not CAD but unclear what) Uncle has sudden cardiac in his 40's Current Medications Generic Name Dose Route Start Last Admin Trade Name Freq PRN Reason Stop Dose Admin Amlodipine Besylate 5 mg 03/04/18 10:00 03/04/18 09:48 Norvasc - PO 5 mg DAILY [facility] Administration Enoxaparin Sodium 40 mg 03/04/18 10:00 03/04/18 09:48 Lovenox - SQ 40 mg DAILY [facility] Administration Nitroglycerin 0.4 mg 03/04/18 01:19 Nitrostat - SL Q5M PRN PAIN Last Vital Signs Temp Pulse Resp BP Pulse Ox 99.0 F 55 L 18 126/65 97 03/03/18 22:15 03/04/18 04:32 03/04/18 04:32 03/04/18 04:32 03/04/18 10:26 General mildly anxious CV S1 S2 RRR no murmur/rub/gallop no chest wall tenderness Lungs CTA B/l no wheezing/rales/rhonchi CBCD WBC 10.0 K/mm3 (4.0-10.0) 03/04/18 05:49 RBC 5.29 M/mm3 (4.00-5.60) 03/04/18 05:49 Hgb 15.1 GM/dL (11.7-16.9) 03/04/18 05:49 Hct 44.7 % (35.4-49) 03/04/18 05:49 MCV 84.4 fl (80-96) 03/04/18 05:49 MCHC 33.9 g/dl (32.0-35.9) 03/04/18 05:49 RDW 13.7 % (11.9-15.9) 03/04/18 05:49 Plt Count 296 K/MM3 (134-434) 03/04/18 05:49 MPV 7.6 fl (7.5-11.1) 03/04/18 05:49 CMP Sodium 141 mmol/L (136-145) 03/04/18 05:49 Potassium 4.7 mmol/L (3.5-5.1) 03/04/18 05:49 Chloride 106 mmol/L (98-107) 03/04/18 05:49 Carbon Dioxide 30 mmol/L (21-32) 03/04/18 05:49 Anion Gap 5 (8-16) L 03/04/18 05:49 BUN 22 mg/dL (7-18) H 03/04/18 05:49 Creatinine 1.2 mg/dL (0.7-1.3) 03/04/18 05:49 Creat Clearance w eGFR > 60 (>60) 03/04/18 05:49 Calcium 9.2 mg/dL (8.5-10.1) 03/04/18 05:49 Total Bilirubin 0.4 mg/dL (0.2-1.0) 03/03/18 19:49 AST 13 U/L (15-37) L D 03/03/18 19:49 ALT 22 U/L (12-78) 03/03/18 19:49 Alkaline Phosphatase 66 U/L (45-117) 03/03/18 19:49 Total Protein 7.4 g/dl (6.4-8.2) 03/03/18 19:49 Albumin 3.9 g/dl (3.4-5.0) 03/03/18 19:49 A/P 52yo M with no PMH presented to the ER with palpitations 1. Palpitations- likely tachyarrythmia with reported HR 130's. no events noted on cardiac montior. will cont to monitor for now. TSH WNL. cardiac enzymes neg x3. will obtain echo to r/o structual disease. will need to consider loop recorder as outpatient if nothing seen on monitor. cardio consulted 2. leukocytosis- liekly reactive. now resolved. no sign of infection. no indication for abx 3. Elevated BUN- liekly slight dehydration. no signs of active bleeding/no steroid use. will give 1L NS bolus 4. Elevated BP on admission- started on norvasc. monitor 5. DVT ppx- lovenox 6. spoke with present at bedside. all questions answered. verbalized understanding and agreement with plan Physical Examination Vital Signs: Vital Signs Temperature 99.0 F 03/03/18 22:15 Pulse Rate 55 L 03/04/18 04:32 Respiratory Rate 18 03/04/18 04:32 Blood Pressure 126/65 03/04/18 04:32 O2 Sat by Pulse Oximetry (%) 97 03/04/18 10:26 Labs: CBC, BMP 03/04/18 05:49 03/04/18 05:49
[2018-03-05 07:52] LABS: CHLORIDE 104 mmol/L (98-107); POTASSIUM 4.5 mmol/L (3.5-5.1); SODIUM 139 mmol/L (136-145)
[2018-03-05 07:58] LABS: ANION GAP 7 (8-16); BLOOD UREA NITROGEN 19 mg/dL (7-18); CALCIUM 8.9 mg/dL (8.5-10.1); CO2 28 mmol/L (21-32); CREATININE 0.9 mg/dL (0.7-1.3); GLUCOSE,RANDOM 81 mg/dL (74-106)
--- NOTE | 2018-03-05 09:34 | EKG ---
Test Reason : Blood Pressure : / mmHG Vent. Rate : 058 BPM Atrial Rate : 058 BPM P-R Int : 152 ms QRS Dur : 096 ms QT Int : 436 ms P-R-T Axes : 053 046 027 degrees QTc Int : 428 ms SINUS BRADYCARDIA MINIMAL VOLTAGE CRITERIA FOR LVH, MAY BE NORMAL VARIANT WHEN COMPARED WITH ECG OF 03-MAR-2018 17:33, NO SIGNIFICANT CHANGE WAS FOUND Confirmed by KATIE GREENBERG, DANIEL ([id number]) on 03/05/2018 9:34:32 AM Referred By: Dane FERMIN Confirmed By:DANIEL WILSON MD
--- NOTE | 2018-03-05 09:38 | EKG ---
Test Reason : Blood Pressure : / mmHG Vent. Rate : 077 BPM Atrial Rate : 077 BPM P-R Int : 162 ms QRS Dur : 094 ms QT Int : 384 ms P-R-T Axes : 057 058 037 degrees QTc Int : 434 ms NORMAL SINUS RHYTHM NORMAL ECG WHEN COMPARED WITH ECG OF 28-FEB-2018 05:52, NO SIGNIFICANT CHANGE WAS FOUND Confirmed by DANIEL WILSON MD ([id number]) on 03/05/2018 9:38:29 AM Referred By: Confirmed By:DANIEL WILSON MD
[2018-03-05] MEDS: ENOXAPARIN NA (PORCINE) 40 MG/0.4 ML DISP.SYRIN SQ SCH (09:47)
[2018-03-05] MEDS: amLODIPine BESYLATE 5 MG TABLET (FP) PO SCH (09:47)
--- NOTE | 2018-03-05 12:42 | PN ---
Teaching Attending Note Name of Resident: Andrew Kraus ATTENDING PHYSICIAN STATEMENT I saw and evaluated the patient. I reviewed the resident's note and discussed the case with the resident. I agree with the resident's findings and plan as documented. SUBJECTIVE:no episodes of palpitations overnight. denies Cp, SOB, fever, chills , N/V/C/D OBJECTIVE: Last Vital Signs Temp Pulse Resp BP Pulse Ox 97.8 F 66 20 126/61 97 03/05/18 10:00 03/05/18 10:00 03/05/18 10:00 03/05/18 10:00 03/05/18 10:00 General NAD CV S1 S2 RRR no murmur/rub/gallop ASSESSMENT AND PLAN: 52yo M with no PMH presented to the ER with palpitations 1. Palpitations- likely tachyarrythmia with reported HR 130's. noted to be bradycardic on the monitor. with light activity in the room, HR increased to 85. awaiting echo. if negative will need to consider loop recorder as outpatient. cardio consulted 2. leukocytosis- liekly reactive. now resolved. no sign of infection. no indication for abx 3. Elevated BUN- liekly slight dehydration. no signs of active bleeding/no steroid use. resolved 4. HTN- on norvasc. monitor 5. DVT ppx- lovenox 6. d/c planning tomorrow after echo
--- NOTE | 2018-03-05 12:58 | PN ---
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 - Current Medication List Current Medications: Active Medications Amlodipine Besylate (Norvasc -) 5 mg PO DAILY [facility] Last Admin: 03/05/18 09:47 Dose: 5 mg Enoxaparin Sodium (Lovenox -) 40 mg SQ DAILY [facility] Last Admin: 03/05/18 09:47 Dose: 40 mg Nitroglycerin (Nitrostat -) 0.4 mg SL Q5M PRN PRN Reason: PAIN - Objective Vital Signs: Vital Signs Temperature 97.8 F 03/05/18 10:00 Pulse Rate 66 03/05/18 10:00 Respiratory Rate 20 03/05/18 10:00 Blood Pressure 126/61 03/05/18 10:00 O2 Sat by Pulse Oximetry (%) 97 03/05/18 10:00 Constitutional: Yes: No Distress, Calm Neck: Yes: Supple Cardiovascular: Yes: Regular Rate and Rhythm Respiratory: Yes: Regular, CTA Bilaterally Gastrointestinal: Yes: Normal Bowel Sounds, Soft Edema: No Labs: CBC, BMP 03/04/18 05:49 03/05/18 06:00 INR, PTT INR 1.23 (0.82-1.09) H 03/03/18 19:49 - ....Imaging Chest X-ray: Report Reviewed (NAD) Cat Scan: Report Reviewed (No PE, NAD) EKG: Report Reviewed (SB @ 58) Problem List - Problems (1) Hypertension Code(s): I10 - ESSENTIAL (PRIMARY) HYPERTENSION Qualifiers: Hypertension type: essential hypertension Qualified Code(s): I10 - Essential (primary) hypertension (2) Chest pain Code(s): R07.9 - CHEST PAIN, UNSPECIFIED Qualifiers: Chest pain type: precordial pain Qualified Code(s): R07.2 - Precordial pain (3) Near syncope Code(s): R55 - SYNCOPE AND COLLAPSE (4) Palpitations Code(s): R00.2 - PALPITATIONS Assessment/Plan 1. Palpitations, chest tightness, dyspnea, near syncope r/o sustained tachyarrhythmia vs mitral valve prolapse syndrome 2. HTN P:1. 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 Echocardiogram to assess ventricular and valve fxn 4. Currently on Norvasc 5 qd, watch for associated reflex tachycardia
--- NOTE | 2018-03-05 20:52 | PN ---
Physical Exam: SUBJECTIVE: Patient seen and examined. Pt. was in no acute distress. Pt. complained of sharp right upper quadrant pain that radiated to the right shoulder. Pt. rates the pain as 6/10 when it occurs. OBJECTIVE: Vital Signs Period Temp Pulse Resp BP Sys/Luu Pulse Ox Last 24 Hr 96.7 F-98.6 F 50-71 18-20 108-131/58-65 97 GENERAL: The patient is awake, alert, and fully oriented, in no acute distress. HEAD: Normal with no signs of trauma. EYES: extraocular movements intact, sclera anicteric, conjunctiva clear NECK: Trachea midline, full range of motion LUNGS: Breath sounds equal, clear to auscultation bilaterally, no wheezes, no crackles, no accessory muscle use. HEART: Regular rate and rhythm, S1, S2 without murmur, rub or gallop. ABDOMEN: Soft, nontender, nondistended, normoactive bowel sounds. EXTREMITIES: warm, no edema. NEUROLOGICAL: Cranial nerves II through XII grossly intact. Normal speech, gait not observed. PSYCH: Normal mood, normal affect. SKIN: Warm, dry, normal turgor, no rashes or lesions noted Intake & Output 03/04/18 03/05/18 03/05/18 23:59 11:59 23:59 Intake Total 1240 120 Balance 1240 120 Intake: IV 1000 Normal Saline - 1,000 ml 1000 @ 1000 mls/hr IV ASDIR STA Rx#:[id number] Oral 240 120 Other: Voiding Method Toilet Toilet Toilet # Unmeasured Voids Void 1 2 Bowel Movement No CBC, BMP 03/04/18 05:49 03/05/18 06:00 CBCD WBC 10.0 K/mm3 (4.0-10.0) 03/04/18 05:49 RBC 5.29 M/mm3 (4.00-5.60) 03/04/18 05:49 Hgb 15.1 GM/dL (11.7-16.9) 03/04/18 05:49 Hct 44.7 % (35.4-49) 03/04/18 05:49 MCV 84.4 fl (80-96) 03/04/18 05:49 MCHC 33.9 g/dl (32.0-35.9) 03/04/18 05:49 RDW 13.7 % (11.9-15.9) 03/04/18 05:49 Plt Count 296 K/MM3 (134-434) 03/04/18 05:49 MPV 7.6 fl (7.5-11.1) 03/04/18 05:49 CMP Sodium 139 mmol/L (136-145) 03/05/18 06:00 Potassium 4.5 mmol/L (3.5-5.1) 03/05/18 06:00 Chloride 104 mmol/L (98-107) 03/05/18 06:00 Carbon Dioxide 28 mmol/L (21-32) 03/05/18 06:00 Anion Gap 7 (8-16) L 03/05/18 06:00 BUN 19 mg/dL (7-18) H 03/05/18 06:00 Creatinine 0.9 mg/dL (0.7-1.3) 03/05/18 06:00 Creat Clearance w eGFR > 60 (>60) 03/05/18 06:00 Calcium 8.9 mg/dL (8.5-10.1) 03/05/18 06:00 Total Bilirubin 0.4 mg/dL (0.2-1.0) 03/03/18 19:49 AST 13 U/L (15-37) L D 03/03/18 19:49 ALT 22 U/L (12-78) 03/03/18 19:49 Alkaline Phosphatase 66 U/L (45-117) 03/03/18 19:49 Total Protein 7.4 g/dl (6.4-8.2) 03/03/18 19:49 Albumin 3.9 g/dl (3.4-5.0) 03/03/18 19:49 Laboratory Results - last 24 hr 03/05/18 06:00 Sodium 139 Potassium 4.5 Chloride 104 Carbon Dioxide 28 Anion Gap 7 L BUN 19 H Creatinine 0.9 Creat Clearance w eGFR > 60 Random Glucose 81 Calcium 8.9 CXR (03/03/18): No chest Pathology CT (03/04/18): No PE or acute pathology Tele: Hesham arrythmias to 50s Active Medications Current Medications Amlodipine Besylate (Norvasc -) 5 mg PO DAILY [facility] Last Admin: 03/05/18 09:47 Dose: 5 mg Enoxaparin Sodium (Lovenox -) 40 mg SQ DAILY [facility] Last Admin: 03/05/18 09:47 Dose: 40 mg Nitroglycerin (Nitrostat -) 0.4 mg SL Q5M PRN PRN Reason: PAIN ASSESSMENT/PLAN: 52yo M with no PMH presented to the ER with palpitations and chest pressure. #Palpitations - Pt. reported tachyarrthmias to 120s-130s - noted hesham arrythmias to the 50s on telemetry - activity increases HR to 80s - Nitroglycerin PRN - Troponin x3 Negative - f/u echo for ventricular or valve dysfunction - consider Loop recorder especially if symptoms recur or persist #Leukocytosis - resolved - no signs of infection #Elevated BUN -resolved #HTN - started Norvasc 5mg - stable BP- resolved #DVT PPx. -Lovenox 40mg #Dispo -possible D/C after echo Visit type - Emergency Visit Emergency Visit: Yes ED Registration Date: 03/03/18 Care time: The patient presented to the Emergency Department on the above date and was hospitalized for further evaluation of their emergent condition. - New Patient This patient is new to me today: Yes Date on this admission: 03/05/18 - Critical Care Critical Care patient: No - Discharge Referral Referred to [facility] Med P.C.: No
[2018-03-06 07:03] LABS: BASO % 0.4 % (0-2.0); EOS % 1.6 % (0-4.5); HEMATOCRIT 45.4 % (35.4-49); HEMOGLOBIN 15.4 GM/dL (11.7-16.9); LYMPH % 14.6 % (8-40); MCH 28.5 pg (25.7-33.7); MCHC 33.8 g/dl (32.0-35.9); MEAN CELL VOLUME 84.3 fl (80-96); MEAN PLT VOLUME 7.5 fl (7.5-11.1); MONO % 7.3 % (3.8-10.2); NEUT % 76.1 % (42.8-82.8); PLATELET COUNT 292 K/MM3 (134-434); RBC 5.39 M/mm3 (4.00-5.60); RDW 13.4 % (11.9-15.9); WHITE BLOOD COUNT 10.3 K/mm3 (4.0-10.0)
[2018-03-06 07:20] LABS: CHLORIDE 103 mmol/L (98-107); POTASSIUM 4.4 mmol/L (3.5-5.1); SODIUM 139 mmol/L (136-145)
[2018-03-06 07:30] LABS: ALBUMIN 3.7 g/dl (3.4-5.0); ALK PHOS 63 U/L (45-117); ANION GAP 7 (8-16); BILIRUBIN,TOTAL 0.5 mg/dL (0.2-1.0); BLOOD UREA NITROGEN 21 mg/dL (7-18); CALCIUM 8.8 mg/dL (8.5-10.1); CO2 29 mmol/L (21-32); CREATININE 0.9 mg/dL (0.7-1.3); GLUCOSE,RANDOM 78 mg/dL (74-106); MAGNESIUM 2.4 mg/dL (1.8-2.4); PHOSPHOROUS 3.9 mg/dL (2.5-4.9); SGOT/AST 15 U/L (15-37); SGPT/ALT 22 U/L (12-78); TOT PROT 7.2 g/dl (6.4-8.2)
[2018-03-06] MEDS: ENOXAPARIN NA (PORCINE) 40 MG/0.4 ML DISP.SYRIN SQ SCH (09:30)
[2018-03-06] MEDS: amLODIPine BESYLATE 5 MG TABLET (FP) PO SCH (09:30)
--- NOTE | 2018-03-06 10:18 | PN ---
Progress Note, Physician History of Present Illness: No further palpitations, dyspnea, near syncope or chest tightness, hospital monitor show SB 40s-50s. - Current Medication List Current Medications: Active Medications Amlodipine Besylate (Norvasc -) 5 mg PO DAILY [facility] Last Admin: 03/06/18 09:30 Dose: 5 mg Enoxaparin Sodium (Lovenox -) 40 mg SQ DAILY [facility] Last Admin: 03/06/18 09:30 Dose: 40 mg Nitroglycerin (Nitrostat -) 0.4 mg SL Q5M PRN PRN Reason: PAIN - Objective Vital Signs: Vital Signs Temperature 97.9 F 03/06/18 09:21 Pulse Rate 65 03/06/18 09:21 Respiratory Rate 16 03/06/18 09:21 Blood Pressure 121/57 03/06/18 09:21 O2 Sat by Pulse Oximetry (%) 98 03/06/18 09:24 Constitutional: Yes: No Distress, Calm Neck: Yes: Supple Cardiovascular: Yes: Regular Rate and Rhythm Respiratory: Yes: Regular, CTA Bilaterally Gastrointestinal: Yes: Normal Bowel Sounds, Soft Edema: No Labs: CBC, BMP 03/06/18 05:45 03/06/18 05:45 INR, PTT INR 1.23 (0.82-1.09) H 03/03/18 19:49 Problem List - Problems (1) Hypertension Code(s): I10 - ESSENTIAL (PRIMARY) HYPERTENSION Qualifiers: Hypertension type: essential hypertension Qualified Code(s): I10 - Essential (primary) hypertension (2) Chest pain Code(s): R07.9 - CHEST PAIN, UNSPECIFIED Qualifiers: Chest pain type: precordial pain Qualified Code(s): R07.2 - Precordial pain (3) Near syncope Code(s): R55 - SYNCOPE AND COLLAPSE (4) Palpitations Code(s): R00.2 - PALPITATIONS Assessment/Plan 1. Palpitations, chest tightness, dyspnea, near syncope r/o sustained tachyarrhythmia vs mitral valve prolapse syndrome 2. HTN P:1. Ruled out for CT 2. potline monitor without sustained tachyarrhythmia thus far 3. Echocardiogram to assess ventricular and valve fxn 4. Currently on Norvasc 5 qd, watch for associated reflex tachycardia 5. D/c planning pending above study results
--- NOTE | 2018-03-06 13:32 | PN ---
Teaching Attending Note Name of Resident: Andrew Kraus ATTENDING PHYSICIAN STATEMENT I saw and evaluated the patient. I reviewed the resident's note and discussed the case with the resident. I agree with the resident's findings and plan as documented. SUBJECTIVE:asymptomatic. denies CP, SOB, fever, chills, N/V/C/D OBJECTIVE: Last Vital Signs Temp Pulse Resp BP Pulse Ox 97.9 F 65 16 121/57 98 03/06/18 09:21 03/06/18 09:21 03/06/18 09:21 03/06/18 09:21 03/06/18 09:24 General NAD CV S1 S2 RRR no murmur/rub/gallop ASSESSMENT AND PLAN: 52yo M with no PMH presented to the ER with palpitations 1. Palpitations- likely tachyarrythmia with reported HR 130's. bradycardia improved. noted only when sleeping. no episodes of palpitations. awaiting echo. if negative will need to consider loop recorder as outpatient. cardio consulted 2. leukocytosis- liekly reactive. now resolved. no sign of infection. no indication for abx 3. Elevated BUN- liekly slight dehydration. no signs of active bleeding/no steroid use. resolved 4. HTN- on norvasc. monitor 5. DVT ppx- lovenox 6. d/c planning pending echo
[2018-03-06 14:36] VITALS: BP 108/62; PULSE 66; TEMP 98
--- NOTE | 2018-03-06 14:59 | DS ---
Physical Exam: SUBJECTIVE: Patient seen and examined OBJECTIVE: Vital Signs Period Temp Pulse Resp BP Sys/Luu Pulse Ox Last 24 Hr 97.3 F-98.7 F 51-66 16-20 108-129/46-64 95-98 PHYSICAL EXAM GENERAL: The patient is awake, alert, and fully oriented, in no acute distress. HEAD: Normal with no signs of trauma. EYES: PERRL, extraocular movements intact, sclera anicteric, conjunctiva clear. ENT: Ears normal, nares patent, oropharynx clear without exudates, moist mucous membranes. NECK: Trachea midline, full range of motion, supple. LUNGS: Breath sounds equal, clear to auscultation bilaterally, no wheezes, no crackles, no accessory muscle use. HEART: Regular rate and rhythm, S1, S2 without murmur, rub or gallop. ABDOMEN: Soft, nontender, nondistended, normoactive bowel sounds, no guarding, no rebound, no hepatosplenomegaly, no masses. EXTREMITIES: 2+ pulses, warm, well-perfused, no edema. NEUROLOGICAL: Cranial nerves II through XII grossly intact. Normal speech, gait not observed. PSYCH: Normal mood, normal affect. SKIN: Warm, dry, normal turgor, no rashes or lesions noted. LABS Laboratory Results - last 24 hr CBC, BMP 03/06/18 05:45 03/06/18 05:45 Laboratory Tests 03/03/18 03/03/18 03/03/18 19:49 19:49 19:49 PT with INR 13.90 H INR 1.23 H Phosphorus Magnesium Troponin I < 0.02 TSH 3.23 03/03/18 03/04/18 03/06/18 23:51 05:49 05:45 PT with INR INR Phosphorus 3.9 Magnesium 2.4 Troponin I < 0.02 < 0.02 TSH HOSPITAL COURSE: Pre Hospital: 52 yo M no significant medical history presented to the ED with palpitation and chest pressure x 2 days. Patient endorses fast heart rate started yesterday night and continued into today. 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 The symptom occurs at rest and during physical activities. It' s associated with sob, dizziness, R hand numbness and tingling. The chest pressure is generalized and diffuse over the center of chest. Patient had multiple ED visits and ACS workups have been negative. He was instructed to undergo stress test at [facility] but never followed up. Denies fever, chills, weakness, urinary or bowel sx, recent travel, trauma. Hospital Course: Date of Admission:03/03/18 Date of Discharge: 03/06/18 Discharge Summary Reason For Visit: CHEST PAIN, PRE-SYNCOPE Current Active Problems Chest pain (Acute) Hypertension (Acute) Near syncope (Acute) Palpitations (Acute) Condition: Stable - Instructions Referrals: Jing Tipton MD [Primary Care Provider] - Jimi Hill MD [Staff Physician] - - Home Medications Comprehensive Discharge Medication List: Ambulatory Orders NK [No Known Home Medication] 03/04/18 - Discharge Referral Referred to [facility] Med [facility] No
== END 2018-03-06 17:36 | disposition home or self-care (01) ==
LOC: JER 17:09 → JERBED 23:46 → UNDOADMOB 03-04 00:44 → J4S 03-04 08:33
PROVIDERS: ADMIT Internal Medicine; ATTEND Internal Medicine
PROC: 3E0337Z Introduction of Electrolytic and Water Balance Substance into Peripheral Vein, Percutaneous Approach (ICD-10-PCS; principal; 2018-03-03)
PROC: 3E033GC Introduction of Other Therapeutic Substance into Peripheral Vein, Percutaneous Approach (ICD-10-PCS; 2018-03-03)
PROC: 3E023GC Introduction of Other Therapeutic Substance into Muscle, Percutaneous Approach (ICD-10-PCS; 2018-03-03)
DX: R07.2 Precordial pain (principal); I10 Essential (primary) hypertension; R00.1 Bradycardia, unspecified; R00.0 Tachycardia, unspecified
CPT/HCPCS: 36415; 71045-TC-FY; 71260-TC; 80048; 80053; 83690; 83735; 84100; 84443; 84484; 85025; 85610; 93005; 93010; 93306-TC; 96361; 96365; 96372; 99284-25; G0378; J7030

== ENCOUNTER 2018-09-28 05:44 | Emergency (ER) | payer SELFPAY, OTHER | END 2018-09-28 07:40 | disposition left against medical advice (07) | LOC: JER 05:44 ==

== ENCOUNTER 2023-08-15 12:47 | Emergency (ER) | payer OTHER ==
[2023-08-15 13:10] VITALS: BP 126/70; PULSE 98; RESP 18; TEMP 97.6; BMI 28.3
[2023-08-15] MEDS ORDERED: ACETAMINOPHEN 1000 MG/100 ML BAG IVPB ONE (13:33)
[2023-08-15 14:49] LABS: BASO % 0.4 % (0-2.0); EOS % 0.5 % (0-4.5); HEMATOCRIT 45.9 % (35.4-49); HEMOGLOBIN 15.4 GM/dL (11.7-16.9); LYMPH % 7.5 % (8-40); MCH 28.3 pg (25.7-33.7); MCHC 33.6 g/dl (32.0-35.9); MEAN CELL VOLUME 84.4 fl (80-96); MEAN PLT VOLUME 7.2 fl (7.5-11.1); MONO % 6.2 % (3.8-10.2); NEUT % 85.4 % (42.8-82.8); PLATELET COUNT 324 10^3/uL (134-434); RBC 5.43 M/mm3 (4.00-5.60); RDW 13.4 % (11.9-15.9); WHITE BLOOD COUNT 10.8 K/mm3 (4.0-10.0)
[2023-08-15 15:17] LABS: POTASSIUM 4.5 mmol/L (3.5-5.1)
[2023-08-15 15:19] LABS: BLOOD UREA NITROGEN 22.8 mg/dL (7-18); CALCIUM 9.4 mg/dL (8.5-10.1)
[2023-08-15 15:20] LABS: ALBUMIN 4.3 g/dl (3.4-5.0)
[2023-08-15 15:23] LABS: CREATININE 1.2 mg/dL (0.55-1.3)
[2023-08-15 15:24] LABS: BILIRUBIN,TOTAL 0.3 mg/dL (0.2-1); TOT PROT 8.1 g/dl (6.4-8.2)
== END 2023-08-15 17:37 | disposition home or self-care (01) ==
LOC: JER 12:47
DX: R07.9 Chest pain, unspecified (principal); R06.02 Shortness of breath; R20.2 Paresthesia of skin
CPT/HCPCS: 36415; 71045-TC-FY; 80053; 84484; 85025; 85379; 93005; 93010; 99285-25